=== PATIENT | female | born 1935 | race Caucasian/White ===

== ENCOUNTER 2017-11-26 07:39 | Outpatient (CLI) | payer MEDICARE, BC ==
[~2017-11-26] VITALS: Ht 167.7 cm; Wt 47.5 kg
[2017-11-26 08:55] VITALS: BP 145/66; PULSE 70; TEMP 97.3
[2017-11-26] MEDS ORDERED: ELIQUIS 5MG PO (08:58)
[2017-11-26] MEDS ORDERED: ACIDOPHILIS (08:58)
[2017-11-26] MEDS ORDERED: BUSPAR10 MG PO (08:59)
[2017-11-26] MEDS ORDERED: CALCIUM CARBON650 M2 (08:59)
[2017-11-26] MEDS ORDERED: XALATAN EYE DROPS OU (09:00)
[2017-11-26] MEDS ORDERED: FOLIC ACID 40400 MCG PO (09:00)
[2017-11-26] MEDS ORDERED: MAGNESIUM200 MG PO (09:01)
[2017-11-26] MEDS ORDERED: SYNTHROID0.075 MG/T PO (09:01)
[2017-11-26] MEDS ORDERED: MULTI VITAMINS1 TAB PO (09:02)
[2017-11-26] MEDS ORDERED: OSTEO-BI-FLEX 21 TAB PO (09:03)
[2017-11-26] MEDS ORDERED: VESICARE10 MG PO (09:03)
[2017-11-26] MEDS ORDERED: PRAVACHOL 20MG20 MG PO (09:03)
[2017-11-26] MEDS ORDERED: B COMPLEX #11 TAB (09:04)
[2017-11-26] MEDS ORDERED: VITAMIN D 400400 IU PO (09:05)
[2017-11-26] MEDS ORDERED: TURMERIC500 MG PO (09:05)
[2017-11-26] MEDS ORDERED: VITAMIN E 400 U4001 PO (09:06)
== END 2017-11-26 11:20 | disposition home or self-care (01) ==
LOC: COL.CAR 07:39
DX: R55 Syncope and collapse (principal); Z88.0 Allergy status to penicillin; Z79.01 Long term (current) use of anticoagulants
CPT/HCPCS: Q9967

== ENCOUNTER → 2017-11-29 | Outpatient (CLI) | payer MEDICARE, BC ==
[~2017-11-29] MED LIST: ACIDOPHILIS; B COMPLEX #11 TAB; BUSPAR10 MG PO; CALCIUM CARBON650 M2; ELIQUIS 5MG PO; FOLIC ACID 40400 MCG PO; MAGNESIUM200 MG PO; MULTI VITAMINS1 TAB PO; OSTEO-BI-FLEX 21 TAB PO; PRAVACHOL 20MG20 MG PO; SYNTHROID0.075 MG/T PO; TURMERIC500 MG PO; VESICARE10 MG PO; VITAMIN D 400400 IU PO; VITAMIN E 400 U4001 PO; XALATAN EYE DROPS OU
== END ==
LOC: COL.CARD 09:48
DX: R55 Syncope and collapse (principal)